=== PATIENT | male | born 1990 | race Caucasian/White ===

== ENCOUNTER → 2016-07-27 | Outpatient (CLI) | payer BC ==
[~2016-07-27] MED LIST: CHOL2000 PO; HYDR-5688 PO; PEGI15IN SC
[2016-07-27 12:12] LABS: BASO % 0.2 %; BASO ABS # 0.01 K/uL (0-0.2); COMPLETE YES; HEMATOCRIT 44.7 % (42-52); IG% 0.4 %; LYMPH % 34.4 %; LYMPH ABS # 1.67 K/uL (1.2-3.4); MEAN CELL VOLUME 90.9 fL (80-100); MEAN CORPUSCULAR HEMOGLOBIN 31.1 pg (25-34); MEAN CORPUSCULAR HGB CONC 34.2 g/dl (32-36); MEAN PLATELET VOLUME 9.9 fL (7.4-10.4); MONO % 10.3 %; NEUT % 53.7 %; PLATELET COUNT 289 K/uL (130-400); RED BLOOD COUNT 4.92 M/uL (4.7-6.1); WHITE BLOOD COUNT 4.85 K/uL (4.8-10.8)
[2016-07-27 12:33] LABS: ALB/GLOB RATIO 1.5 (0.9-2); ALT/SGPT 41 U/L (12-78); AST/SGOT 18 U/L (15-37); BLOOD UREA NITROGEN 13 mg/dl (7-18); BUN/CREATININE RATIO 13.4 (10-20); CALCIUM 9.1 mg/dl (8.5-10.1); CARBON DIOXIDE 30 mmol/L (21-32); CHLORIDE 106 mmol/L (98-107); CREATININE 0.97 mg/dl (0.60-1.40); GLUCOSE 109 mg/dl (70-99); POTASSIUM 4.3 mmol/L (3.5-5.1); SODIUM 142 mmol/L (136-145)
[2016-07-27 12:34] LABS: ALKALINE PHOSPHATASE 95 U/L (45-117)
== END | disposition home or self-care (01) ==
LOC: C.LAB 10:50
PROVIDERS: ATTEND Psychiatry & Neurology Neurology
DX: G35 Multiple sclerosis (principal)

== ENCOUNTER → 2016-07-30 | Outpatient (CLI) | payer BC ==
[~2016-07-30] MED LIST changes: +GADAVIST IV PRN
--- NOTE | 2016-07-30 15:35 | DIAGNOSTIC IMAGING REPORT ---
BRAIN COMBO FOR MS CLINICAL HISTORY: Multiple sclerosis. COMPARISON STUDY: MRI of the brain March 06, 2016. TECHNIQUE: Utilizing a 1.5 Delmy magnet, multiplanar, multi echo imaging of the brain was performed pre and postcontrast administration according to the multiple sclerosis protocol. Injection of 8 cc of Gadavist IV was uneventful. FINDINGS: There are no areas of restricted diffusion. No acute intracranial hemorrhage, midline shift or mass effect is present. Brain volume is normal. Ventricular system is normal. Basilar cisterns are patent. There are no extra-axial collections. Flow-voids for the major intracranial vessels are present. Multiple supra and infratentorial foci of signal abnormality are noted. Conspicuity of these plaques has diminished since exam March 06, 2016. No new plaques are identified. There is no MRI evidence of active demyelination. No intracranial masses identified. Calvarial signal is normal. Orbits and sinuses are unremarkable. IMPRESSION: 1. No acute intracranial findings. 2. Decreased conspicuity of multiple supra and infratentorial plaques since MRI of March 06, 2016. No new plaques. No evidence of active demyelination by MRI. Electronically signed by: Kaleb Tripathi M.D. 07/30/2016 3:34 PM Dictated Date/Time: 07/30/2016 3:29 PM
== END | disposition home or self-care (01) ==
LOC: C.MRI 14:04
PROVIDERS: ATTEND Psychiatry & Neurology Neurology
DX: G35 Multiple sclerosis (principal)

== ENCOUNTER 2016-11-29 19:46 | Observation (INO) | payer BC ==
[~2016-11-29] VITALS: Ht 180.3 cm; Wt 77.2 kg
[2016-11-29] MEDS ORDERED: ONDANSETRON INJ 2 MG/ML 2 ML VIAL IV STA (20:04)
[2016-11-29] MEDS ORDERED: SODIUM CHLORIDE 0.9% 1000ML 1,000 ML IV STA (20:04)
[2016-11-29] MEDS ORDERED: MoRPHine SULFATE 4 MG/ML 1 ML CARP\\VIAL IV STA (20:04)
[2016-11-29] MEDS ORDERED: OPTIRAY 320 IV PRN (20:15)
[2016-11-29] MEDS ORDERED: PEGI15IN SC (20:20)
[2016-11-29] MEDS ORDERED: CHOL2000 PO (20:20)
[2016-11-29 20:29] LABS: URINE APPEARANCE CLEAR (CLEAR); URINE BILIRUBIN NEG (NEG); URINE COLOR YELLOW; URINE NITRITE NEG (NEG); URINE PH 5.5 (4.5-7.5); URINE SPECIFIC GRAVITY 1.027 (1.000-1.030); UROBILINOGEN NEG (NEG)
[2016-11-29 20:29] LABS: BASO % 0.1 %; BASO ABS # 0.01 K/uL (0-0.2); COMPLETE YES; EOS % 0.1 %; HEMATOCRIT 42.4 % (42-52); IG% 0.2 %; LYMPH % 9.1 %; LYMPH ABS # 1.22 K/uL (1.2-3.4); MEAN CELL VOLUME 88.7 fL (80-100); MEAN CORPUSCULAR HGB CONC 36.1 g/dl (32-36); MEAN PLATELET VOLUME 9.4 fL (7.4-10.4); MONO % 10.1 %; NEUT % 80.4 %; PLATELET COUNT 290 K/uL (130-400); RED BLOOD COUNT 4.78 M/uL (4.7-6.1); WHITE BLOOD COUNT 13.42 K/uL (4.8-10.8)
[2016-11-29 20:35] LABS: MANUAL MICROSCOPIC REQUIRED? NO; REVIEW REQ? NO
[2016-11-29 20:47] LABS: BUN/CREATININE RATIO 13.1 (10-20); CALCIUM 8.9 mg/dl (8.5-10.1); POTASSIUM 3.7 mmol/L (3.5-5.1)
--- NOTE | 2016-11-29 23:05 | DIAGNOSTIC IMAGING REPORT ---
ABDOMEN AND PELVIS CT WITH IV AND ORAL CONTRAST CT DOSE: 322.36 mGy.cm HISTORY: Generalized abdominal pain. TECHNIQUE: Multiaxial CT images of the abdomen and pelvis were performed following the use of intravenous and oral contrast. A dose lowering technique was utilized adhering to the principles of ALARA. COMPARISON STUDY: Abdomen and pelvis CT 09/06/2011. FINDINGS: The lung bases are clear. No pneumoperitoneum. No pneumatosis. The liver, gallbladder, spleen, adrenal glands, kidneys, and pancreas are unremarkable. No retroperitoneal lymphadenopathy. The bladder is unremarkable. No evidence for bowel obstruction. Moderate stool within the proximal colon. The bladder is unremarkable. Trace fluid along the left side of the pelvis and left paracolic gutter. The appendix is identified and the mid pelvis on images 301 through 327. The appendix is mildly distended up to 9 mm. There appears to be mild thickening of the appendiceal wall and trace periappendiceal fat stranding. The appendix is fluid-filled. There is no gas within the appendix. IMPRESSION: Fluid filled and mildly distended appendix measuring up to 9 mm. There is mild thickening of the appendiceal wall and trace periappendiceal fat stranding. Therefore, this is consistent with acute appendicitis. Electronically signed by: Nishant Vigil M.D. 11/29/2016 11:03 PM Dictated Date/Time: 11/29/2016 10:45 PM
[2016-11-29] MEDS ORDERED: CEFOXITIN 2000MG/60 ML D5W IV STA (23:06)
--- NOTE | 2016-11-29 23:42 | EMERGENCY ROOM VISIT NOTE ---
ED Visit Note First contact with patient: 19:52 Chief Complaint: Having abdominal pain and nausea and vomiting. History of Present Illness: Mr. Deleon is a 26 year-old white male who ambulates into the ED accompanied by his mother complaining of right lower quadrant abdominal pain. Historically patient reports he has a history of gastric reflux and H. pylori infection. Additionally he reports he had similar symptoms a couple years ago. A CAT scan was performed that showed an elongated central appendix without acute appendicitis. Patient reports a gradual onset of mid lower quadrant abdominal pain that started approximately 10-11hours ago. Since that time the pain has been constant. He reports initially it was moderately severe and has gradually decreased throughout the day. He describes his pain as a sharp sensation. He rates his discomfort 6/10. His pain is nonradiating. His pain worsens with palpation in the right lower quadrant. He reports he has been nauseated and vomited. His mother admits that he did have a fever earlier today. He has not taken any medications for his pain prior to arrival at the hospital. Patient denies chills, sweats, skin eruptions, skin color changes, upper respiratory tract symptoms, shortness of breath, chest pain, diarrhea, constipation, rectal bleeding, black/tarry stools, urinary symptoms, hematuria, back/flank pain. Review of Systems: As noted above in history of present illness. All body systems were reviewed and found to be negative as noted above. Past Medical History: As previously noted and multiple sclerosis. Current Medications: Medications Dose Route/Sig Max Daily Dose Days Date Category Dose Instructions Vitamin D3 (Cholecalciferol) 2,000 Unit Cap 2,000 Inter.unit PO DAILY 11/29/16 Reported Plegridy (Peginterferon Beta-1A) 125 Mcg/0.5 Ml Inj 125 Mcg SC UD 11/29/16 Reported ADMINISTER TWICE MONTHLY DIRECTED BY MD Allergies to Medications: Patient denies. Social History: Patient is currently employed; he feels safe in his home environment; he denies tobacco use and admits to alcohol use. Physical Examination: Vital Signs: Date Time Temp Pulse Resp B/P (MAP) Pulse Ox O2 Delivery O2 Flow Rate FiO2 11/29/16 23:11 89 22 99 11/29/16 23:05 133/80 11/29/16 22:11 102 16 91 11/29/16 22:01 134/72 11/29/16 21:56 92 17 97 11/29/16 21:31 134/74 11/29/16 21:26 93 21 98 11/29/16 21:21 93 14 98 11/29/16 21:06 104 31 99 11/29/16 21:01 143/80 11/29/16 20:51 95 20 100 11/29/16 20:36 94 19 100 11/29/16 20:36 93 15 99 11/29/16 20:31 132/82 11/29/16 20:27 90 11/29/16 20:26 92 27 98 Room Air 11/29/16 20:24 148/80 11/29/16 19:48 37.0 104 18 136/79 97 Room Air GENERAL: 26-year-old female in mild distress due to pain, nontoxic-appearing, afebrile and hemodynamically stable. NEUROLOGICAL: Awake, alert and oriented to person, place and time. Answering questions appropriately and following commands. Normal gait. Good hand eye coordination. SKIN: Warm, dry and pink. No soft tissue eruptions or trauma noted. HEENT: Atraumatic and normocephalic. PERRLA. Sclera white and conjunctiva pink. Oral cavity moist and pink. Pharynx is nonerythematous or edematous. Speech normal. No lymphadenopathy. Trachea midline. No jugular venous distention. BACK: No tenderness over the bony spine. No CVA tenderness. THORAX: Lungs sounds are clear to auscultation and equal bilaterally with symmetrical chest wall. No wheezing, rales or rhonchi. No crepitus, tenderness , subcutaneous air or deformities noted. HEART: Regular rate and rhythm. No gallops, rubs or murmurs are appreciated. ABDOMEN: Flat and soft with moderate tenderness in the right lower quadrant over McBurney's point. Guarding present. Positive bowel sounds in all quadrants. No rigidity or organomegaly. EXTREMITIES: Moves all extremities well on command and with purpose. All distal neurovascular statuses are intact and equal bilaterally. ED Course: Patient is assessed as noted above. Patient's medication list was reviewed. Laboratory Testing: Test 11/29/16 20:15 11/29/16 20:18 Range/Units Urine Color YELLOW Urine Appearance CLEAR CLEAR Urine pH 5.5 4.5-7.5 Urine Specific Shelly 1.027 1.000-1.030 Urine Protein NEG NEG Urine Glucose (UA) NEG NEG Urine Ketones TRACE NEG Urine Occult Blood NEG NEG Urine Nitrite NEG NEG Urine Bilirubin NEG NEG Urine Urobilinogen NEG NEG Urine Leukocyte Esterase NEG NEG White Blood Count 13.42 4.8-10.8 K/uL Red Blood Count 4.78 4.7-6.1 M/uL Hemoglobin 15.3 14.0-18.0 g/dL Hematocrit 42.4 42-52 % Mean Corpuscular Volume 88.7 80-100 fL Mean Corpuscular Hemoglobin 32.0 25-34 pg Mean Corpuscular Hemoglobin Concent 36.1 32-36 g/dl Platelet Count 290 130-400 K/uL Mean Platelet Volume 9.4 7.4-10.4 fL Neutrophils (%) (Auto) 80.4 % Lymphocytes (%) (Auto) 9.1 % Monocytes (%) (Auto) 10.1 % Eosinophils (%) (Auto) 0.1 % Basophils (%) (Auto) 0.1 % Neutrophils # (Auto) 10.78 1.4-6.5 K/uL Lymphocytes # (Auto) 1.22 1.2-3.4 K/uL Monocytes # (Auto) 1.36 0.11-0.59 K/uL Eosinophils # (Auto) 0.02 0-0.5 K/uL Basophils # (Auto) 0.01 0-0.2 K/uL RDW Standard Deviation 40.9 36.4-46.3 fL RDW Coefficient of Variation 12.6 11.5-14.5 % Immature Granulocyte % (Auto) 0.2 % Immature Granulocyte # (Auto) 0.03 0.00-0.02 K/uL Sodium Level 139 136-145 mmol/L Potassium Level 3.7 3.5-5.1 mmol/L Chloride Level 105 98-107 mmol/L Carbon Dioxide Level 28 21-32 mmol/L Anion Gap 6.0 3-11 mmol/L Blood Urea Nitrogen 13 7-18 mg/dl Creatinine 1.00 0.60-1.40 mg/dl Est Creatinine Clear Calc Drug Dose 118.1 ml/min Estimated GFR () 119.0 Estimated GFR (Non- 102.7 BUN/Creatinine Ratio 13.1 10-20 Random Glucose 93 70-99 mg/dl Calcium Level 8.9 8.5-10.1 mg/dl Total Bilirubin 0.5 0.2-1 mg/dl Direct Bilirubin 0.1 0-0.2 mg/dl Aspartate Amino Transf (AST/SGOT) 21 15-37 U/L Alanine Aminotransferase (ALT/SGPT) 49 12-78 U/L Alkaline Phosphatase 106 45-117 U/L Total Protein 7.4 6.4-8.2 gm/dl Albumin 4.3 3.4-5.0 gm/dl Lipase 160 73-393 U/L Contrast Abdominal/Pelvic CT: Was reviewed by myself and read by the radiologist showing a fluid-filled and mildly distended appendix measuring up to 9 mm with mild thickening of the wall and trace periappendical fat stranding consistent with an acute appendicitis. Patient was hydrated with normal saline and he received 4 mg of morphine IV for pain and 4 mg of Zofran IV for nausea. Patient was reassessed multiple times during his stay in the emergency department. Patient's case was reviewed with Dr. Trejo; we agreed on diagnostic approach , treatment, disposition and plan. Patient's case was consulted with Dr. Desai, general surgery; for surgical evaluation and care. At Dr. Desai's request I ordered 2 g of Mefoxin IV for antibiotic coverage. Patient mother were educated about today's findings. Clinical Impression: Acute appendicitis. Decision-Making: Initially my differential diagnosis I considered appendicitis, constipation, bowel obstruction, urinary tract infection, ureter calculus, and other causes. Disposition and Plan: Please see final disposition and plan by Dr. Desai.
[2016-11-29] MEDS ORDERED: BUPIVACAINE/EPINEPHRINE 0.5% MPF 1:200,000 10 ML VIAL ONE (23:45)
--- NOTE | 2016-11-29 23:51 | History and Physical ---
History & Physical Date Nov 29, 2016. History of Present Illness The patient is a 26 year old male with complaints of abdominal pain starting this AM. worsened. now in RLQ. CT c/w acute appendicitis Additional History Hepatic Disease: No Endocrine Disorder: No Kidney Disease: No Hypertension: No Heart Disease: No Bleeding Tendencies: No Infectious Diseases: No Other: multiple sclerosis Allergies Coded Allergies: No Known Allergies (Unverified , 09/10/13) Home Medications Scheduled Cholecalciferol (Vitamin D3), 2,000 INTER.UNIT PO DAILY Peginterferon Beta-1A (Plegridy), 125 MCG SC UD Physical Examination Skin: warm/dry Eyes: EOMI Head: normocephalic, atraumatic Neck: supple, trachea midline Respiratory/Chest: no respiratory distress Abdomen / GI: + pertinent finding (+TTP in RLQ. + guarding. ) Diagnosis acute appendicitis Plan of Treatment discussed options/risks ( bleeding/infection/dvt/pe/injury to other organs/ leaks etc...) questions answered will proceed to OR tonight. pt agreeable.
[2016-11-30] VITALS (10 sets, daily range): BP systolic 113–137; BP diastolic 61–75; PULSE 72–88; TEMP 36.5–37; O2SAT 93–97; Ht 180.3 cm; Wt 77.2 kg
[2016-11-30] MEDS ORDERED: FENTANYL CITRATE INJ 50 MCG/1 ML 2 ML VIAL ONE (00:29)
[2016-11-30] MEDS ORDERED: FENTANYL CITRATE INJ 50 MCG/1 ML 2 ML VIAL IV PRN (00:30)
[2016-11-30] MEDS ORDERED: PROMETHAZINE HCL INJ 6.25 MG in SODIUM CHLORIDE 0.9% 50ML 50 ML IV PRN (00:30)
[2016-11-30] MEDS ORDERED: HYDROmorphone INJ 1 MG/ML SYR IV PRN (00:30)
[2016-11-30] MEDS ORDERED: EpHEDrine SULFATE INJ 50 MG/ML AMP IV PRN (00:30)
[2016-11-30] MEDS ORDERED: ONDANSETRON INJ 2 MG/ML 2 ML VIAL IV PRN ×2 (00:30→01:30)
[2016-11-30] MEDS ORDERED: ATROPINE SULFATE 0.1 MG/ML 5ML SYR IV PRN (00:30)
[2016-11-30] MEDS ORDERED: MoRPHine SULFATE PF 1 MG/ML 10 ML AMP/VIAL ONE (01:01)
[2016-11-30] MEDS ORDERED: GLYCOPYRROLATE INJ 0.2 MG/ML VIAL ONE (01:02)
[2016-11-30] MEDS ORDERED: NEOSTIGMINE METHYLSULFATE 5 MG/5 ML SYR ONE (01:02)
[2016-11-30] MEDS ORDERED: LIDOCAINE HCL 2% 2 ML VIAL (20MG/ML) ONE (01:02)
[2016-11-30] MEDS ORDERED: PROPOFOL IV EMULSION 10 MG/ML 20 ML VIAL IV ONE (01:02)
[2016-11-30] MEDS ORDERED: SUCCINYLCHOLINE CHLORIDE 20 MG/ML 10 ML VIAL IV ONE (01:02)
[2016-11-30] MEDS ORDERED: ONDANSETRON INJ 2 MG/ML 2 ML VIAL ONE (01:02)
[2016-11-30] MEDS ORDERED: KETOROLAC TROMETHAMINE 30 MG/ML VIAL ONE (01:03)
[2016-11-30] MEDS ORDERED: HYDROCODONE/ACETAMOPHEN 5/325MG TAB PO PRN ×2 (01:30)
[2016-11-30] MEDS ORDERED: MoRPHine SULFATE 2 MG/ML CARP IV PRN (01:30)
[2016-11-30] MEDS ORDERED: IBUPROFEN 600 MG TAB PO PRN (01:30)
[2016-11-30] MEDS ORDERED: ACETAMINOPHEN IV 100 ML IV PRN (01:30)
[2016-11-30] MEDS ORDERED: MoRPHine SULFATE 4 MG/ML 1 ML CARP\\VIAL IV PRN (01:30)
--- NOTE | 2016-11-30 01:30 | [facility] Operative Report ---
Operative Report Operative Date Nov 30, 2016. Pre-Operative Diagnosis Acute Appendicitis Post-Operative Diagnosis Same as preop Procedure(s) Performed Laparoscopic Appendectomy Surgeon Dr. Desai Fixture Repairer Fabricator Surgeon(s) none Estimated Blood Loss 5 ml Findings acute appendicitis Specimens A. Appendix Anesthesia get Complication(s) None Disposition Recovery Room / PACU Description of Procedure After informed consent was obtained the patient was taken to the operating suite and placed in supine position. After successful intubation the left arm was tucked and a Julien catheter was placed. The abdomen was sterilely prepped and draped in usual fashion. An infraumbilical incision was made with an 11 blade scalpel and carried down through the soft tissues electrocautery. The Anterior rectus fascia was opened using electrocautery and 2 #0 Vicryl stay sutures were placed. Peritoneum was elevated with hemostats and incised under direct vision using a Metzenbaum scissor. A finger sweep was performed a 12 mm Yang trocar was placed. The abdomen was insufflated 18 mmHg. The Laparoscope was inserted and the abdomen was examined in 360. There is a little bit of murky fluid in the pelvis but otherwise no gross abnormalities. A suprapubic 5 mm port and left lower quadrant 12 mm port were placed under direct vision. We looked first in the right lower quadrant. The appendix was readily identifiable. It did appear to be thickened and firm consistent with acute appendicitis. I was able to grasp it and elevate it and used a [place] dissector to make a small opening in the meso- appendix. We then stapled off the appendix with a AMOR Brown cartridge at its junction with the cecum. The same cartridge was used to transect the mesentery itself. The staple line was intact and there was adequate hemostasis. I did run the small bowel backwards from the ileocecal valve for about 6 feet and saw no gross abnormalities. We thoroughly irrigated the pelvis as well as right lower quadrant. A final look around the abdomen showed no other gross abnormalities. The appendix was placed into an Endo Catch bag and removed from the camera port site. The trochars were all removed and the abdomen was desufflated. The fascia the camera port as well as left lower quadrant was closed using 0 Vicryl in figure- of-eight fashion. The wounds were all irrigated and closed using 4-0 Monocryl. Marcaine was injected around for postoperative analgesia and skin glue used as a dressing. The patient was awaken and transferred recovery in stable condition I attest to the content of the Intraoperative Record and any orders documented therein. Any exceptions are noted below.
--- NOTE | 2016-11-30 02:11 | Anesthesiology Progress Note ---
Anesthesia Post Op Note Date & Time Nov 30, 2016 at 02:11 Vital Signs Pain Intensity: 0 Vital Signs Past 12 Hours Date Time Temp Pulse Resp B/P (MAP) Pulse Ox O2 Delivery O2 Flow Rate FiO2 11/30/16 02:00 36.7 74 16 145/79 (93) 99 Room Air 11/30/16 01:50 36.7 77 16 137/78 (89) 99 Room Air 11/30/16 01:40 77 14 135/80 (91) 99 Room Air 11/30/16 01:30 75 14 140/91 (100) 100 Oxymask 5 11/30/16 01:21 37 89 16 130/68 (82) 98 Oxymask 5 11/29/16 23:46 89 14 97 11/29/16 23:31 85 14 132/64 98 11/29/16 23:16 88 20 98 11/29/16 23:11 89 22 99 11/29/16 23:05 133/80 11/29/16 22:11 102 16 91 11/29/16 22:01 134/72 11/29/16 21:56 92 17 97 11/29/16 21:31 134/74 11/29/16 21:26 93 21 98 11/29/16 21:21 93 14 98 11/29/16 21:06 104 31 99 11/29/16 21:01 143/80 11/29/16 20:51 95 20 100 11/29/16 20:36 94 19 100 11/29/16 20:36 93 15 99 11/29/16 20:31 132/82 11/29/16 20:27 90 11/29/16 20:26 92 27 98 Room Air 11/29/16 20:24 148/80 11/29/16 19:48 37.0 104 18 136/79 97 Room Air Notes Mental Status: alert / awake / arousable, participated in evaluation Pt Amnestic to Procedure: Yes Nausea / Vomiting: adequately controlled Pain: adequately controlled Airway Patency, RR, SpO2: stable & adequate BP & HR: stable & adequate Hydration State: stable & adequate Anesthetic Complications: no major complications apparent
[2016-11-30] MEDS ORDERED: IV FLUIDS COMPLETED PRN (02:15)
[2016-11-30] MEDS: LACTATED RINGER'S 1000ML 1,000 ML IV SCH ×2 (02:34→08:31)
[2016-11-30] MEDS: CEFOXITIN IV 2,000 MG in DEXTROSE 5% 50ML 50 ML IV SCH ×2 (06:11→14:00)
[2016-11-30] MEDS ORDERED: HYDR-5688 PO (07:20)
--- NOTE | 2016-11-30 07:23 | Discharge Instructions ---
Discharge Instructions Date of Service Nov 30, 2016. Admission Reason for Admission: Acute Appendicitis Discharge Discharge Diagnosis / Problem: appendectomy Discharge Goals Goal(s): Decrease discomfort Activity Recommendations Activity Limitations: as noted below Shower/Bathe: no limitations Driving or Machine Use: resume 3 days after discharge . Instructions / Follow-Up Instructions / Follow-Up Dr. Desai in 2 weeks, call [phone] to schedule, [facility], [address] [place] [address] Current Hospital Diet Patient's current hospital diet: Clear Liquid Diet Discharge Diet Recommended Diet: Regular Diet Procedures Procedures Performed: Laparoscopic Appendectomy Pending Studies Studies pending at discharge: no School Instructions Return To School: time frame (3-5 days) Medical Emergencies . Who to Call and When: Medical Emergencies: If at any time you feel your situation is an emergency, please call 911 immediately. . Non-Emergent Contact Non-Emergency issues call your: Surgeon Call Non-Emergent contact if: you have a fever, temperature is above 101.5, your pain is not controlled, wound has increased drainage, wound has increased redness, you have any medication questions . "Provider Documentation" section prepared by Rd Leon. . VTE Core Measure Inpt VTE Proph given/why not?: SCD's [place] Drug Monitoring Program Search Results: no issues identified
[2016-11-30 09:28] LABS: HEMATOCRIT 37.3 % (42-52); MEAN CELL VOLUME 89.4 fL (80-100); MEAN CORPUSCULAR HEMOGLOBIN 32.6 pg (25-34); MEAN CORPUSCULAR HGB CONC 36.5 g/dl (32-36); RED BLOOD COUNT 4.17 M/uL (4.7-6.1); WHITE BLOOD COUNT 8.94 K/uL (4.8-10.8)
[2016-11-30 09:29] LABS: COMPLETE YES; IG% 0.2 %; LYMPH % 7.2 %; LYMPH ABS # 0.64 K/uL (1.2-3.4); MEAN PLATELET VOLUME 9.4 fL (7.4-10.4); MONO % 5.8 %; NEUT % 86.8 %; PLATELET COUNT 272 K/uL (130-400)
--- NOTE | 2016-11-30 11:13 | Surgery Progress Note ---
Surgery Progress Note Date of Service Nov 30, 2016. Subjective + feeling well Objective Vital Signs: Date Time Temp Pulse Resp B/P (MAP) Pulse Ox O2 Delivery O2 Flow Rate FiO2 11/30/16 08:00 97 Room Air 11/30/16 07:05 36.8 79 16 113/65 (81) 97 Room Air 11/30/16 05:18 36.5 74 14 120/67 (84) 97 Room Air 11/30/16 04:18 36.9 84 14 118/61 (80) 96 Room Air 11/30/16 03:19 36.9 88 14 120/64 (82) 95 Room Air 11/30/16 02:54 95 Room Air 11/30/16 02:52 37.0 88 16 125/75 (92) 93 Room Air 11/30/16 02:34 36.8 82 16 130/75 Room Air 11/30/16 02:15 Room Air 11/30/16 02:00 36.7 74 16 145/79 (93) 99 Room Air 11/30/16 01:50 36.7 77 16 137/78 (89) 99 Room Air 11/30/16 01:40 77 14 135/80 (91) 99 Room Air 11/30/16 01:30 75 14 140/91 (100) 100 Oxymask 5 11/30/16 01:21 37 89 16 130/68 (82) 98 Oxymask 5 11/29/16 23:46 89 14 97 11/29/16 23:31 85 14 132/64 98 11/29/16 23:16 88 20 98 11/29/16 23:11 89 22 99 11/29/16 23:05 133/80 11/29/16 22:11 102 16 91 11/29/16 22:01 134/72 11/29/16 21:56 92 17 97 11/29/16 21:31 134/74 11/29/16 21:26 93 21 98 11/29/16 21:21 93 14 98 11/29/16 21:06 104 31 99 11/29/16 21:01 143/80 11/29/16 20:51 95 20 100 11/29/16 20:36 94 19 100 11/29/16 20:36 93 15 99 11/29/16 20:31 132/82 11/29/16 20:27 90 11/29/16 20:26 92 27 98 Room Air 11/29/16 20:24 148/80 11/29/16 19:48 37.0 104 18 136/79 97 Room Air General Appearance: no apparent distress Abdomen: non distended, soft Laboratory Results: Results Past 24 Hours Test 11/29/16 20:15 11/29/16 20:18 11/30/16 09:15 Range/Units Urine Color YELLOW Urine Appearance CLEAR CLEAR Urine pH 5.5 4.5-7.5 Urine Specific [place] 1.027 1.000-1.030 Urine Protein NEG NEG Urine Glucose (UA) NEG NEG Urine Ketones TRACE NEG Urine Occult Blood NEG NEG Urine Nitrite NEG NEG Urine Bilirubin NEG NEG Urine Urobilinogen NEG NEG Urine Leukocyte Esterase NEG NEG White Blood Count 13.42 8.94 4.8-10.8 K/uL Red Blood Count 4.78 4.17 4.7-6.1 M/uL Hemoglobin 15.3 13.6 14.0-18.0 g/dL Hematocrit 42.4 37.3 42-52 % Mean Corpuscular Volume 88.7 89.4 80-100 fL Mean Corpuscular Hemoglobin 32.0 32.6 25-34 pg Mean Corpuscular Hemoglobin Concent 36.1 36.5 32-36 g/dl Platelet Count 290 272 130-400 K/uL Mean Platelet Volume 9.4 9.4 7.4-10.4 fL Neutrophils (%) (Auto) 80.4 86.8 % Lymphocytes (%) (Auto) 9.1 7.2 % Monocytes (%) (Auto) 10.1 5.8 % Eosinophils (%) (Auto) 0.1 0.0 % Basophils (%) (Auto) 0.1 0.0 % Neutrophils # (Auto) 10.78 7.76 1.4-6.5 K/uL Lymphocytes # (Auto) 1.22 0.64 1.2-3.4 K/uL Monocytes # (Auto) 1.36 0.52 0.11-0.59 K/uL Eosinophils # (Auto) 0.02 0.00 0-0.5 K/uL Basophils # (Auto) 0.01 0.00 0-0.2 K/uL RDW Standard Deviation 40.9 41.0 36.4-46.3 fL RDW Coefficient of Variation 12.6 12.7 11.5-14.5 % Immature Granulocyte % (Auto) 0.2 0.2 % Immature Granulocyte # (Auto) 0.03 0.02 0.00-0.02 K/uL Sodium Level 139 136-145 mmol/L Potassium Level 3.7 3.5-5.1 mmol/L Chloride Level 105 98-107 mmol/L Carbon Dioxide Level 28 21-32 mmol/L Anion Gap 6.0 3-11 mmol/L Blood Urea Nitrogen 13 7-18 mg/dl Creatinine 1.00 0.60-1.40 mg/dl Est Creatinine Clear Calc Drug Dose 118.1 ml/min Estimated GFR () 119.0 Estimated GFR (Non- 102.7 BUN/Creatinine Ratio 13.1 10-20 Random Glucose 93 70-99 mg/dl Calcium Level 8.9 8.5-10.1 mg/dl Total Bilirubin 0.5 0.2-1 mg/dl Direct Bilirubin 0.1 0-0.2 mg/dl Aspartate Amino Transf (AST/SGOT) 21 15-37 U/L Alanine Aminotransferase (ALT/SGPT) 49 12-78 U/L Alkaline Phosphatase 106 45-117 U/L Total Protein 7.4 6.4-8.2 gm/dl Albumin 4.3 3.4-5.0 gm/dl Lipase 160 73-393 U/L Assessment & Plan POD 1 lap appy doing well gisela diet so far ok for d/c if tolerates lunch instructions given
--- NOTE | 2016-12-03 19:23 | DISCHARGE SUMMARY ---
PRIMARY DISCHARGE DIAGNOSIS: Acute appendicitis. SECONDARY DISCHARGE DIAGNOSIS: Multiple sclerosis. PROCEDURE PERFORMED: Laparoscopic appendectomy. HOSPITAL COURSE: The patient is a 26-year-old male who presented to the Emergency Department approximately with a 12-hour history of right lower quadrant pain. His white count was 13,000. CT was consistent with appendicitis. He was taken to the operating room for laparoscopic appendectomy. He was transferred to the surgical floor for overnight observation. On postoperative day 1, his white count improved to 8000. He was able to tolerate an advancing diet and oral analgesics. He was stable for discharge after lunch. His incisions were dry. His abdomen was soft. DISCHARGE INSTRUCTIONS: Discharge home. Follow up with Dr. Desai in 2 weeks. DISCHARGE MEDICATIONS: Elkin 1-2 tablets every 4 hours as needed. Continue home vitamin D3 supplement and Plegridy 125 mcg injections.
== END 2016-11-30 14:00 | disposition home or self-care (01) ==
LOC: C.EDB 19:47 → C.MSN 11-30 02:20
PROVIDERS: ADMIT Surgery; ATTEND Surgery
DX: K35.80 Unspecified acute appendicitis (principal); K21.9 Gastro-esophageal reflux disease without esophagitis; G35 Multiple sclerosis

== ENCOUNTER → 2017-02-04 | Outpatient (CLI) | payer BC ==
[~2017-02-04] MED LIST changes: -GADAVIST IV PRN
[2017-02-04 12:50] LABS: BASO % 0.2 %; BASO ABS # 0.01 K/uL (0-0.2); EOS % 1.1 %; HEMATOCRIT 42.6 % (42-52); IG% 0.2 %; LYMPH % 36.3 %; LYMPH ABS # 1.68 K/uL (1.2-3.4); MEAN CELL VOLUME 90.4 fL (80-100); MEAN CORPUSCULAR HEMOGLOBIN 31.4 pg (25-34); MEAN CORPUSCULAR HGB CONC 34.7 g/dl (32-36); MEAN PLATELET VOLUME 9.8 fL (7.4-10.4); MONO % 15.1 %; NEUT % 47.1 %; PLATELET COUNT 319 K/uL (130-400); RED BLOOD COUNT 4.71 M/uL (4.7-6.1); WHITE BLOOD COUNT 4.63 K/uL (4.8-10.8)
[2017-02-04 12:51] LABS: ALT/SGPT 26 U/L (12-78); BLOOD UREA NITROGEN 16 mg/dl (7-18); BUN/CREATININE RATIO 16.2 (10-20); CALCIUM 9.3 mg/dl (8.5-10.1); CARBON DIOXIDE 28 mmol/L (21-32); CHLORIDE 102 mmol/L (98-107); COMPLETE YES; GLUCOSE 97 mg/dl (70-99); POTASSIUM 3.8 mmol/L (3.5-5.1); SODIUM 140 mmol/L (136-145)
[2017-02-04 12:53] LABS: ALB/GLOB RATIO 1.4 (0.9-2); ALKALINE PHOSPHATASE 101 U/L (45-117); AST/SGOT 14 U/L (15-37)
== END | disposition home or self-care (01) ==
LOC: C.LAB 09:38
PROVIDERS: ATTEND Psychiatry & Neurology Neurology
DX: G35 Multiple sclerosis (principal)

== ENCOUNTER → 2017-07-18 | Outpatient (CLI) | payer OTHER ==
[~2017-07-18] MED LIST changes: +GADAVIST IV PRN; -HYDR-5688 PO
--- NOTE | 2017-07-18 17:37 | DIAGNOSTIC IMAGING REPORT ---
BRAIN COMBO FOR MS HISTORY: Multiple sclerosis G35 Multiple [id number] TECHNIQUE: Multiplanar multisequence MRI of the brain was performed both before and after the intravenous administration of contrast. COMPARISON STUDY: 07/30/2016 FINDINGS: There are no areas of restricted diffusion to suggest acute infarction. The midline structures are intact. The paranasal sinuses are clear. The mastoid air cells are clear. The ventricles and sulci are within normal limits for age. There is no mass, hematoma, midline shift. The major vascular flow-voids at the skull base are well maintained. Postcontrast sequences show no areas of abnormal enhancement. Several small foci of increased signal within the frontal lobe region as well as optic radiations are similar. There are no new or interval findings. There is no significant postcontrast enhancement. The left pontine focus of increased signal is diminished in prominence. IMPRESSION: Generally stable to slightly improved evaluation of the brain compared to the prior study. No evidence for an active plaque or postcontrast enhancement of significance. No acute process. The above report was generated using voice recognition software. It may contain grammatical, syntax or spelling errors. Electronically signed by: Tian Bond M.D. 07/18/2017 5:35 PM Dictated Date/Time: 07/18/2017 5:31 PM
== END | disposition home or self-care (01) ==
LOC: C.MRI 16:31
PROVIDERS: ATTEND Psychiatry & Neurology Neurology
DX: G35 Multiple sclerosis (principal)